=== PATIENT | female | born 1995 | race Caucasian/White ===

== ENCOUNTER 2019-02-22 00:25 | Emergency (ER) | payer OTHER ==
--- NOTE | 2019-02-22 00:50 | ED Physician Documentation ---
History of Present Illness - Stated complaint Stated Complaint: POSS MED REACTION - Chief complaint Chief Complaint: General - History obtained from History obtained from: Patient - History of Present Illness Timing: Today Improved by: nothing Worsened by: no exacerbating factors - Additonal information Additional information: c/o chest heaviness, nausea, dizziness, generalized weakness, sore throat, diaphoresis. Symptoms started 1 PM today shortly after taking her first dose of sumatriptan Review of Systems Constitutional: reports: Sweats. denies: Fever, Chills, Myalgias Throat: reports: Sore throat Cardiac: reports: Chest pain / pressure. denies: Palpitations, Pedal edema, Calf pain Respiratory: reports: Reviewed and negative GI: reports: Nausea. denies: Abdominal Pain, Vomiting Neurologic: reports: Generalized weakness. denies: Focal weakness, Numbness, Headache PD PAST MEDICAL HISTORY - Past Medical History Past Medical History: Yes Cardiovascular: None Respiratory: None Neuro: Headaches Endocrine/Autoimmune: None GI: None [employer]: None : None HEENT: None Psych: None Musculoskeletal: None Derm: None - Past Surgical History Past Surgical History: Yes General: Other - Allergies Allergies/Adverse Reactions: Allergies Allergy/AdvReac Type Severity Reaction Status Date / Time No Known Drug Allergies Allergy Verified 02/22/19 00:45 - Social History Does the pt smoke?: No Smoking Status: Never smoker Does the pt drink ETOH?: No Does the pt have substance abuse?: No - Immunizations Immunizations are current?: Yes - POLST Patient has POLST: No PD ED PE NORMAL - Vitals Vital signs reviewed: Yes - General General: Alert and oriented X 3, No acute distress, Well developed/nourished - HEENT HEENT: Moist mucous membranes, Pharynx benign - Cardiac Cardiac: RRR, No murmur, No gallop, No rub - Respiratory Respiratory: No respiratory distress, Clear bilaterally - Abdomen Abdomen: Soft, Non tender - Derm Derm: Normal color, Warm and dry - Extremities Extremities: No edema Results - Vitals Vitals: Oxygen O2 Source Room air - EKG (time done) No standard instances Rate: Rate (enter#) (69) Rhythm: NSR [place]: Normal Intervals: Normal [place] QRS: Normal Ischemia: Normal ST segments - Labs Labs: Laboratory Tests 02/22/19 02/22/19 02/22/19 01:40 01:40 01:40 WBC 10.7 RBC 4.24 Hgb 12.9 Hct 38.5 MCV 90.8 MCH 30.4 MCHC 33.5 RDW 12.4 Plt Count 307 MPV 10.1 Neut # (Auto) 6.0 Lymph # (Auto) 3.4 [place] # (Auto) 0.8 Eos # (Auto) 0.4 Baso # (Auto) 0.0 Absolute Nucleated RBC 0.00 Nucleated RBC % 0.0 Sodium 139 Potassium 3.5 Chloride 104 Carbon Dioxide 26 Anion Gap 9.0 BUN 12 Creatinine 0.7 Estimated GFR (MDRD) 103 Glucose 96 Calcium 8.6 Troponin I < 0.04 PD MEDICAL DECISION MAKING - ED course Complexity details: reviewed results, re-evaluated patient, considered ele derick, d/w patient Departure - Departure Disposition: 01 Home, Self Care Clinical Impression: Chest pain Qualifiers: Chest pain type: unspecified Qualified Code(s): R07.9 - Chest pain, unspecified Condition: Good Health Concerns: chest pain Plan of Treatment: discontinue using Sumatriptan. return to emergency department if worse. Follow up with PCP Care Goals: symptom control, prevention of recurrence Assessment: see diagnosis Instructions: ED Chest Pain Atypical Unkn Cause, ED Drug React Adverse Other Follow-Up: Martha Munson ARNP [Primary Care Provider] - Forms: Activity restrictions Discharge Date/Time: 02/22/19 03:00
[2019-02-22 01:20] VITALS: BP 115/66
[2019-02-22 01:46] LABS: BASOPHILS % (AUTO) 0.4 %; EOSINOPHILS # (AUTO) 0.4 10^3/uL (0.0-0.7); EOSINOPHILS % (AUTO) 3.4 %; HGB - HEMOGLOBIN 12.9 g/dL (12.0-16.0); LYMPHOCYTES # (AUTO) 3.4 10^3/uL (1.5-3.5); LYMPHOCYTES % (AUTO) 31.8 %; MEAN CORPUSCULAR HEMOGLOBIN 30.4 pg (27.0-31.0); MEAN CORPUSCULAR HGB CONC 33.5 g/dL (32.0-36.0); MEAN CORPUSCULAR VOLUME 90.8 fL (81.0-99.0); MEAN PLATELET VOLUME 10.1 fL (7.9-10.8); MONOCYTES # (AUTO) 0.8 10^3/uL (0.0-1.0); MONOCYTES % (AUTO) 7.9 %; NEUTROPHILS % (AUTO) 56.2 %; PLT - PLATELET COUNT 307 10^3/uL (130-450); RED BLOOD COUNT 4.24 10^6/uL (4.20-5.40); RED CELL DISTRIBUTION WIDTH 12.4 % (12.0-15.0); WHITE BLOOD COUNT 10.7 x10^3/uL (4.8-10.8)
[2019-02-22 01:57] LABS: CALCIUM 8.6 mg/dL (8.5-10.3); CREATININE 0.7 mg/dL (0.4-1.0)
== END 2019-02-22 03:00 | disposition home or self-care (01) ==
LOC: ED 00:25
DX: R07.9 Chest pain, unspecified (principal)
CPT/HCPCS: 36415; 80048; 84484; 85025; 93005; 99282; 99283